=== PATIENT | male | born 1970 | race Caucasian/White ===

== ENCOUNTER 2018-04-19 10:55 | Emergency (ER) | payer BC ==
[2018-04-19 11:22] VITALS: BP 133/86
--- NOTE | 2018-04-19 11:49 | UC ---
UC General HPI - History of Current Complaint Chief Complaint: UCGI Stated Complaint: PERSONAL Time Seen by Provider: 04/19/18 11:43 Hx Obtained From: Patient Onset/Duration: Sudden Onset Pain Intensity: 2 - Allergy/Home Medications Allergies/Adverse Reactions: Allergies Allergy/AdvReac Type Severity Reaction Status Date / Time Penicillins Allergy Hives Verified 04/19/18 11:13 Home Medications: Home Medications Famotidine TAB* [Pepcid 20 MG TAB*] 10 mg PO DAILY 04/19/18 [History Confirmed 04/19/18] PMH/Surg Hx/FS Hx/Imm Hx - Surgical History Surgical History: Yes Surgery Procedure, Year, and Place: Left Wrist Ganglion Cystectomy, ~2002, [facility] – [place] - Social History Alcohol Use: Weekly Substance Use Type: None Smoking Status (MU): Heavy Every Day Tobacco Smoker Type: Cigarettes Amount Used/How Often: 1/2 PPD Length of Time of Smoking/Using Tobacco: Since Age 13 Household Exposure Type: Cigarettes Physical Exam Vital Signs: Initial Vital Signs Temp 98.3 F 04/19/18 11:12 Pulse 86 04/19/18 11:12 Resp 18 04/19/18 11:12 BP 133/86 04/19/18 11:12 Pulse Ox 100 04/19/18 11:12 Discharge - Discharge Plan Referrals: Jimmy Higginbotham MD [Primary Care Provider] -
[2018-04-19] MEDS ORDERED: Lidocaine 4% TOPICAL* 50 ML TOP.SOLN TOPICAL ONE (12:24)
[2018-04-19] MEDS ORDERED: Lidocaine 2% W/EPI 1:100,000* 20 ML MDV INJ ONE (12:36)
--- NOTE | 2018-04-20 09:53 | UC ---
Discharge - Sign-Out/Discharge Documenting (check all that apply): Post-Discharge Follow Up All imaging exams completed and their final reports reviewed: No Studies - Discharge Plan Condition: Stable Disposition: HOME Prescriptions: Ibuprofen TAB* [Motrin TAB* 600 MG] 600 mg PO Q8H PRN #30 tab PRN Reason: Pain Patient Education Materials: Thrombosed Hemorrhoid (ED) Referrals: Jimmy Higginbotham MD [Primary Care Provider] - Additional Instructions: Expect small amounts of bloody drainage for the next couple days. Keep your stool very soft and wash well with warm water after every bowel movement. If there is increasing pain or brisk bleeding, get seen again right away. - Billing Disposition and Condition Condition: STABLE Disposition: Home
--- NOTE | 2018-05-07 12:50 | UC ---
Complaint Male HPI - HPI Summary HPI Summary: History of hemorrhoids in the past. For several days has had enlarging hemorrhoid, became severely painful in the last day or two. Would like drainage if possible. - History of Current Complaint Chief Complaint: UCGI Stated Complaint: PERSONAL Time Seen by Provider: 04/19/18 11:43 Hx Obtained From: Patient Onset/Duration: Gradual Onset, Lasting Days Timing: Constant Severity Initially: Mild Severity Currently: Moderate Pain Intensity: 0 Pain Scale Used: 0-10 Numeric Location: Other - Perianal area Character: Sharp, Burning Aggravating Factor(s): Palpation Alleviating Factor(s): Nothing Associated Signs And Symptoms: Positive: Negative - Allergies/Home Medications Allergies/Adverse Reactions: Allergies Allergy/AdvReac Type Severity Reaction Status Date / Time Penicillins Allergy Hives Verified 04/19/18 11:13 Home Medications: Home Medications Famotidine TAB* [Pepcid 20 MG TAB*] 10 mg PO DAILY 04/19/18 [History Confirmed 04/19/18] PMH/Surg Hx/FS Hx/Imm Hx Respiratory History: COPD - possible GI/ History: Gastroesophageal Reflux Other GI/ History: hemorrhoids with I&D in past - Surgical History Surgical History: Yes Surgery Procedure, Year, and Place: Left Wrist Ganglion Cystectomy, ~2002, [facility] – [place] - Family History Known Family History: Positive: Hypertension - Social History Occupation: Employed Full-time Lives: With Family Alcohol Use: Weekly Substance Use Type: None Smoking Status (MU): Heavy Every Day Tobacco Smoker Type: Cigarettes Amount Used/How Often: 1/2 PPD Length of Time of Smoking/Using Tobacco: Since Age 13 Have You Smoked in the Last Year: Yes Household Exposure Type: Cigarettes Cessation Counseling: Patient Advised to Stop Review of Systems Constitutional: Negative Skin: Negative Eyes: Negative ENT: Negative Respiratory: Negative Cardiovascular: Negative Gastrointestinal: Other - anal pain Genitourinary: Negative Motor: Negative Neurovascular: Negative Musculoskeletal: Negative Neurological: Negative Psychological: Negative Is Patient Immunocompromised?: No All Other Systems Reviewed And Are Negative: Yes Physical Exam Triage Information Reviewed: Yes Appearance: Well-Appearing, Well-Nourished, Pain Distress Vital Signs: Initial Vital Signs Temp 98.3 F 04/19/18 11:12 Pulse 86 04/19/18 11:12 Resp 18 04/19/18 11:12 BP 133/86 04/19/18 11:12 Pulse Ox 100 04/19/18 11:12 Vital Signs Reviewed: Yes Eye Exam: Normal Eyes: Positive: Conjunctiva Clear ENT Exam: Normal ENT: Positive: Normal ENT inspection, Hearing grossly normal, Pharynx normal, TMs normal Neck exam: Normal Neck: Positive: Supple, Nontender Respiratory Exam: Normal Respiratory: Positive: Chest non-tender, Lungs clear, Normal breath sounds, No respiratory distress, No accessory muscle use Cardiovascular Exam: Normal Cardiovascular: Positive: RRR, No Murmur Male Genital Exam: Positive: Other - Large thrombosed external hemorrhoid, very TTP Musculoskeletal Exam: Normal Neurological Exam: Normal Neurological: Positive: Alert Psychological Exam: Normal Skin Exam: Normal Procedures - Incision and Drainage Midline Buttocks Site: anus Anesthesia: Topical Instrument(s): Scalpel Packing: Other - No packing, blood loss minimial. Large clot expressed, pt reports relief. Complaint Male Course/Dx - Differential Dx/Diagnosis Provider Diagnoses: Thrombosed hemorrhoid with I&D Discharge - Sign-Out/Discharge Documenting (check all that apply): Patient Departure All imaging exams completed and their final reports reviewed: No Studies - Discharge Plan Condition: Stable Disposition: HOME Prescriptions: Ibuprofen TAB* [Motrin TAB* 600 MG] 600 mg PO Q8H PRN #30 tab PRN Reason: Pain Patient Education Materials: Thrombosed Hemorrhoid (ED) Referrals: Jimmy Higginbotham MD [Primary Care Provider] - Additional Instructions: Expect small amounts of bloody drainage for the next couple days. Keep your stool very soft and wash well with warm water after every bowel movement. If there is increasing pain or brisk bleeding, get seen again right away. - Billing Disposition and Condition Condition: STABLE Disposition: Home
== END 2018-04-19 13:10 | disposition home or self-care (01) ==
LOC: UCCORT 10:55
DX: K64.5 Perianal venous thrombosis (principal); K21.9 Gastro-esophageal reflux disease without esophagitis; Z88.0 Allergy status to penicillin; F17.210 Nicotine dependence, cigarettes, uncomplicated
CPT/HCPCS: 46083; 99212; G0463